=== PATIENT | male | born 1980 ===

== ENCOUNTER 2022-03-20 13:00 | Outpatient (RCR) | payer OTHER, SELFPAY | END 2022-03-25 16:20 | disposition home or self-care (01) | LOC: HO.PTCHIC 13:00 | PROVIDERS: PCP Family Medicine; Visit Provider Physical Medicine & Rehabilitation Sports Medicine | DX: M79.18 Myalgia, other site (principal) | CPT/HCPCS: 97110; 97140; 97161 ==